=== PATIENT | female | born 1940 ===

== ENCOUNTER 2023-07-05 11:40 | Outpatient (RCR) | payer OTHER, SELFPAY | END 2023-07-05 23:59 | disposition home or self-care (01) | LOC: RPT 11:40 | PROVIDERS: ATTENDING PHYSICIAN Family Medicine | DX: I89.0 Lymphedema, not elsewhere classified (principal) | CPT/HCPCS: 97162; 97535 ==

== ENCOUNTER 2023-09-05 15:38 | Outpatient (RCR) | payer OTHER, SELFPAY | END 2023-09-05 23:59 | disposition home or self-care (01) | LOC: RPT 15:38 | PROVIDERS: ATTENDING PHYSICIAN Family Medicine | DX: I89.0 Lymphedema, not elsewhere classified (principal); Z73.6 Limitation of activities due to disability | CPT/HCPCS: 97535; 97760 ==